=== PATIENT | female | born 1975 | race African-American/Black ===

== ENCOUNTER 2017-08-05 10:35 | Emergency (ER) | payer SELFPAY ==
[~2017-08-05] VITALS: Ht 180.3 cm; Wt 153.8 kg
[2017-08-05 10:57] VITALS: BP 127/99
== END 2017-08-05 13:36 | disposition left against medical advice (07) ==
LOC: ER 10:35
DX: R05 Cough (principal); Z53.21 Procedure and treatment not carried out due to patient leaving prior to being seen by health care provider